=== PATIENT | female | born 1995 | race African-American/Black ===

== ENCOUNTER 2016-10-26 | Emergency (ER) | payer OTHER ==
--- NOTE | 2016-10-26 00:51 | ED Physician Documentation ---
PD HPI ABD PAIN - Stated complaint Stated Complaint: ABDOMINAL PAIN - Chief complaint Chief Complaint: Abd Pain - History obtained from History obtained from: Patient, Family - History of Present Illness Timing - onset: How many months ago (1.5) Timing - duration: Weeks (6) Timing - details: Gradual onset, Still present, Waxing and waning Quality: Sharp, Pain Location: Periumbilical Radiation: No: Chest, , Lower back, Left flank, Left shoulder, Right flank, Right shoulder, Upper back Improved by: Laying still Worsened by: Moving, Position, Palpation Associated symptoms: No: Fever, Nausea, Vomiting, Diarrhea, Constipation, Dysuria, Chest pain, Loss of appetite, Weight loss Similar symptoms before: Has not had sx before Recently seen: Not recently seen - Additional information Additional information: 20-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 She felt that she was having some persistent pain today and became concerned and is come to the emergency department her pain is now improved and she has some pain when she is laying still. Review of Systems Constitutional: denies: Fever Respiratory: denies: Cough GI: reports: Abdominal Pain. denies: Abdominal Swelling, Nausea, Vomiting, Constipation, Diarrhea : denies: Dysuria, Frequency PD PAST MEDICAL HISTORY - Past Medical History Past Medical History: Yes - Past Surgical History Past Surgical History: No - Present Medications Home Medications: Ambulatory Orders Medication Instructions Recorded Confirmed Loratadine/Pseudoephedrine 1 tab ORAL PRN PRN 10/26/16 10/26/16 [Claritin-D 24 Hour Tablet] - Allergies Allergies/Adverse Reactions: Allergies Allergy/AdvReac Type Severity Reaction Status Date / Time shellfish derived Allergy Anaphylaxis Verified 10/26/16 00:10 - Social History Does the pt smoke?: No Smoking Status: Never smoker Does the pt drink ETOH?: Yes Does the pt have substance abuse?: No - Immunizations Immunizations: TDAP >10years/unknown PD ED PE NORMAL - Vitals Vital signs reviewed: Yes (Hypertensive) - General General: No acute distress, Well developed/nourished - HEENT HEENT: Atraumatic, PERRL, EOMI - Respiratory Respiratory: No respiratory distress - Abdomen Abdomen: Soft, Other (There is a specific area of the periumbilical abdomen cephalad from the umbilicus and to the left side with a small knot that receives from my finger with persistent pressure consistent with ventral herniation. This does not appear incarcerated and the patient has complete resolution of her pain.) - Back Back: No CVA TTP, No spinal TTP - Derm Derm: Normal color, Warm and dry, No rash - Extremities Extremities: No deformity, No edema - Neuro Neuro: No motor deficit, No sensory deficit - Psych Psych: Normal mood, Normal affect Results - Vitals Vitals: Vital Signs - 24 hr 10/26/16 00:04 Temperature 37.1 C Heart Rate 87 Respiratory 18 Rate Blood Pressure 156/56 H O2 Saturation 98 Oxygen O2 Source Room air PD MEDICAL DECISION MAKING - ED course Complexity details: considered differential, d/w patient, d/w family ED course: 20-year-old female with relatively benign sounding abdominal pain present for the past month and a half appears to have ventral hernia on examination. The defect appears small and she does not have prior evidence of surgical invasion of the abdomen. Her symptoms are consistent with ventral hernia there is a palpable defect and a reduction of contents with ease and resolution of pain. Further workup does not appear necessary at this point and I have discussed this with the patient and her and recommended she follow-up with our local surgeon for evaluation and potential eventual repair. I have described to her reduction technique and reasons to return to the emergency department including incarceration and persistent pain. Departure - Departure Disposition: 01 Home, Self Care Clinical Impression: Ventral hernia Qualifiers: Obstruction and gangrene presence: without obstruction or gangrene Qualified Code(s): K43.9 - Ventral hernia without obstruction or gangrene Instructions: Hernia How Develops, Hernia Surg Repair Follow-Up: Anamaria Rangel MD [Primary Care Provider] - Horacio Reynolds MD [Provider Admit Priv/Credential] - Comments: Today in the Emergency Department your blood pressure was elevated. This can happen from the stress of the visit itself, from a current illness or circumstance or from uncontrolled hypertension. If you take blood pressure medications take your usual mediations, have your blood pressure re-checked in an appropriate setting and follow up any elevation with your primary care doctor.
[2016-10-26 01:30] VITALS: BP 135/85
== END 2016-10-26 01:29 | disposition home or self-care (01) ==
LOC: ED
DX: K43.9 Ventral hernia without obstruction or gangrene (principal)
CPT/HCPCS: 99283